=== PATIENT | female | born 1995 | race Two or more races ===

== ENCOUNTER 2019-02-12 23:18 | Emergency (ER) | payer BC ==
[~2019-02-12] VITALS: Ht 167.6 cm; Wt 54.4 kg
[2019-02-12] MEDS ORDERED: NORG EE (23:36)
--- NOTE | 2019-02-12 23:43 | NUR ---
Dr. Melvin at bedside for MSE.
[2019-02-12] MEDS ORDERED: SULFAMETH/TRIMETH 800/160 MG TABLET PO ONE (23:45)
[2019-02-12] MEDS ORDERED: SULFAMETH/TRIMETH 800/160 MG TABLET ONE ×2 (23:51→23:59)
--- NOTE | 2019-02-13 00:03 | NUR ---
Patient discharged to home in stable conditon. Written and verbal after care instructions given. Patient verbalizes understanding of instructions. Pt ambulated out of ER with steady gait, no acute signs of distress, VSS, all belongings taken.
[2019-02-13 00:05] VITALS: BP 124/76
== END 2019-02-13 00:13 | disposition home or self-care (01) ==
LOC: ER 23:18
DX: M79.651 Pain in right thigh (principal); B95.8 Unspecified staphylococcus as the cause of diseases classified elsewhere; Z79.899 Other long term (current) drug therapy
CPT/HCPCS: A4663